=== PATIENT | male | born 1975 | race Caucasian/White ===

== ENCOUNTER 2019-11-07 17:56 | Emergency (ER) | payer SELFPAY ==
[2019-11-07 20:11] LABS: Urine Appearance CLEAR; Urine Bilirubin NEGATIVE (NEG); Urine Blood NEGATIVE (NEG); Urine Color YELLOW; Urine Glucose NEGATIVE (NEG); Urine Protein TRACE (NEG); Urine Specific Gravity >=1.030 (1.005-1.030); Urine Urobilinogen 0.2 mg/dL (0.2-1.0); Urine pH 5.5 (5.0-7.0)
[2019-11-07 20:25] LABS: Absolute Lymphocytes (CBC) 2.4 K/uL (0.7-4.9); Basophils % 1.1 % (0-1.3); Hematocrit 43.8 % (39.6-49.0); Lymphocytes % 19.9 % (15.3-44.8); MPV 9.5 fL (7.6-11.3); RBC Red Blood Cell Count 4.85 M/uL (4.33-5.43); Urine Bacteria <20 /HPF (NONE SEEN); Urine Culture Reflex Order NOT NEEDED; Urine Microscopic Reflex ORDER UMIC
[2019-11-07 20:26] LABS: Calcium Oxalate Crystals- Ur PRESENT (NONE SEEN)
[2019-11-07 20:28] LABS: ALT/SGPT 18 U/L (12-78); AST/SGOT 14 U/L (15-37); Albumin 3.3 g/dL (3.4-5.0); Alkaline Phosphatase 104 U/L (45-117); BUN Blood Urea Nitrogen 8 mg/dL (7-18); Bicarbonate 29 mmol/L (21-32); Bilirubin Direct < 0.1 mg/dL (0-0.2); Bilirubin Total 0.2 mg/dL (0.2-1.0); Glucose Level 104 mg/dL (74-106); Lipase 82 U/L (73-393); Potassium 3.5 mmol/L (3.5-5.1); Protein, Total 7.9 g/dL (6.4-8.2); Sodium Level 142 mmol/L (136-145)
[2019-11-07] MEDS ORDERED: KETOROLAC 30 MG/ML INJ ONE (20:37)
--- NOTE | 2019-11-07 20:42 | RAD REPORT ---
EXAM DESCRIPTION: CT - Stone Protocol - 11/07/2019 8:26 pm CLINICAL HISTORY: Abdominal pain. COMPARISON: None. TECHNIQUE: Computed axial tomography of the abdomen pelvis was obtained without oral or IV contrast. Lack of IV and oral contrast limits evaluation of solid organs, bowel, and vessels. Coronal reformat kalyn images were obtained and reviewed. All CT scans are performed using dose optimization technique as appropriate and may include automated exposure control or mA/KV adjustment according to patient size. FINDINGS: A renal calculus is not seen. An ureteral calculus is not noted. A bladder calculus is not present. A 21 millimeter low-density mass left kidney Cholelithiasis. Gallbladder wall does not appear thickened. The liver, spleen, pancreas and adrenals appear grossly normal There is no evidence of diverticulitis. The appendix appears normal Small inguinal hernias contain fat. Small umbilical hernia Subchondral sclerosis involves the sacroiliac joints with vacuum phenomena IMPRESSION: Negative for a genitourinary calculus 21 millimeter low-density mass left kidney is nonspecific without IV contrast. It probably represents a cyst. This could be confirmed with nonemergent renal ultrasound Cholelithiasis without evidence cholecystitis
--- NOTE | 2019-11-07 21:27 | EDPHYS ---
Physician Documentation [facility] Name: Robert Pablo Age: 44 yrs Sex: Male : 1975 Arrival Date: 11/07/2019 Time: 17:57 Bed 14 Private MD: ED Physician Saeid Turk HPI: 11/06 21:22 This 44 yrs old Male presents to ER via Ambulatory with complaints of Back tw4 Pain, Blood In Urine. 21:22 The patient presents with pain that is acute. The symptoms are located in the right mid tw4 back. Onset: The symptoms/episode began/occurred today. The pain does not radiate. Associated signs and symptoms: The patient has no apparent associated signs or symptoms. Severity of symptoms: At their worst the symptoms were moderate, in the emergency department the symptoms are unchanged. The patient has not experienced similar symptoms in the past. Historical: - Allergies: 18:20 PENICILLINS; aa5 - PMHx: 18:20 None; aa5 - PSHx: 18:20 None; aa5 - Immunization history:: Adult Immunizations unknown. - Social history:: Smoking status: Patient reports the use of cigarette tobacco products, smokes one pack cigarettes per day. ROS: 21:22 Constitutional: Negative for fever, chills, and weight loss, Eyes: Negative for injury, tw4 pain, redness, and discharge, Cardiovascular: Negative for chest pain, palpitations, and edema, Respiratory: Negative for shortness of breath, cough, wheezing, and pleuritic chest pain, Abdomen/GI: Negative for abdominal pain, nausea, vomiting, diarrhea, and constipation, MS/Extremity: Negative for injury and deformity, Skin: Negative for injury, rash, and discoloration, Neuro: Negative for headache, weakness, numbness, tingling, and seizure. 21:22 Back: Positive for flank pain. Exam: 21:22 Constitutional: This is a well developed, well nourished patient who is awake, alert, tw4 and in no acute distress. Head/Face: Normocephalic, atraumatic. Chest/axilla: Normal chest wall appearance and motion. Nontender with no deformity. No lesions are appreciated. Cardiovascular: Regular rate and rhythm with a normal S1 and S2. No gallops, murmurs, or rubs. Normal PMI, no JVD. No pulse deficits. Respiratory: Lungs have equal breath sounds bilaterally, clear to auscultation and percussion. No rales, rhonchi or wheezes noted. No increased work of breathing, no retractions or nasal flaring. Abdomen/GI: Soft, non-tender, with normal bowel sounds. No distension or tympany. No guarding or rebound. No evidence of tenderness throughout. MS/ Extremity: Pulses equal, no cyanosis. Neurovascular intact. Full, normal range of motion. Neuro: Awake and alert, GCS 15, oriented to person, place, time, and situation. Cranial nerves II-XII grossly intact. Motor strength 5/5 in all extremities. Sensory grossly intact. Cerebellar exam normal. Normal gait. 21:22 Back: pain, that is mild, ROM is normal, CVA tenderness, is noted on the right. Vital Signs: 18:19 BP 150 / 79; Pulse 88; Resp 18 S; Temp 98.4(O); Pulse Ox 97% on R/A; Weight 104.33 kg aa5 (R); Height 5 ft. 11 in. (180.34 cm) (R); Pain 9/10; 20:17 BP 138 / 85; Pulse 78; Resp 18; Pulse Ox 97% on R/A; dh4 18:19 Body Mass Index 32.08 (104.33 kg, 180.34 cm) aa5 MDM: 19:36 Patient medically screened. tw4 21:27 Differential diagnosis: Abdominal Aortic Aneurysm sprain, Ureterolithiasis vertebral tw4 fracture. Data reviewed: vital signs, nurses notes. Data interpreted: Pulse oximetry: Interpretation: normal. Counseling: I had a detailed discussion with the patient and/or guardian regarding: the historical points, exam findings, and any diagnostic results supporting the discharge/admit diagnosis. Special discussion: I discussed with the patient/guardian in detail that at this point there is no indication for admission to the hospital. It is understood, however, that if the symptoms persist or worsen the patient needs to return immediately for re-evaluation. 11/06 19:31 Order name: Basic Metabolic Panel; Complete Time: 21:03 tw4 11/06 21:03 Interpretation: Normal except: CL 109. tw4 11/06 19:31 Order name: CBC with Diff; Complete Time: 21:18 tw4 11/06 21:19 Interpretation: Normal except: WBC 12.1; EOSINOPHIL % 4.5; NEUT A 8.4. 11/06 19:31 Order name: Hepatic Function; Complete Time: 21:19 11/06 21:19 Interpretation: Normal except: AST 14; ALB 3.3; GLOB 4.6; A/G 0.7. 11/06 19:31 Order name: Lipase; Complete Time: 21:19 11/06 21:19 Interpretation: Within normal limits: LIP 82. 11/06 19:31 Order name: Urinalysis; Complete Time: 21:02 11/06 19:31 Order name: Urine Microscopic Only; Complete Time: 21:19 11/06 21:19 Interpretation: Normal except: URBC 5-10. 11/06 19:31 Order name: IV Saline Lock; Complete Time: 21:40 11/06 19:31 Order name: Labs collected and sent; Complete Time: 21:40 11/06 19:31 Order name: CT Stone Protocol; Complete Time: 21:02 11/06 20:27 Order name: Urine Microscopic Only EDMS Administered Medications: 20:15 Drug: TORadol 30 mg Route: IVP; Site: right antecubital; ls4 20:45 Follow up: Response: No adverse reaction; Marked relief of symptoms ls4 Disposition: 11/07/19 21:27 Discharged to Home. Impression: Calculus of ureter, Hematuria. - Condition is Stable. - Discharge Instructions: Kidney Stones, Renal Colic, Kidney Stones, [id number]. - Prescriptions for Ibuprofen 800 mg Oral Tablet - take 1 tablet by ORAL route every 8 hours As needed take with food; 30 tablet. Tylenol- Codeine #3 300-30 mg Oral Tablet - take 2 tablet by ORAL route every 6 hours As needed; 30 tablet. Zofran 4 mg Oral Tablet - take 1 tablet by ORAL route every 12 hours As needed; 6 tablet. Flomax 0.4 mg Oral Capsule, Sust. Release 24 hr - take 1 capsule by ORAL route once daily 1/2 hour following the same meal each day; 30 capsule. - Medication Reconciliation Form, Thank You Letter, Antibiotic Education, Prescription Opioid Use form. - Follow up: Private Physician; When: Upon discharge from the Emergency Department; Reason: Recheck today's complaints, Continuance of care, Re-evaluation by your physician. - Problem is new. - Symptoms have improved. Signatures: Dispatcher [employer] EDMS Verena Truong, RN RN aa5 Saeid Turk MD MD tw4 Fran Nava RN RN mg2 Emma Vidales RN RN ls4 Corrections: (The following items were deleted from the chart) : 21:27 11/07/2019 21:27 Discharged to Home. Impression: Calculus of ureter. Condition is tw4 Stable. Forms are Medication Reconciliation Form, Thank You Letter, Antibiotic Education, Prescription Opioid Use. Follow up: Private Physician; When: Upon discharge from the Emergency Department; Reason: Recheck today's complaints, Continuance of care, Re-evaluation by your physician. Problem is new. Symptoms have improved. tw4 21:41 21:27 11/07/2019 21:27 Discharged to Home. Impression: Calculus of ureter; Hematuria. mg2 Condition is Stable. Forms are Medication Reconciliation Form, Thank You Letter, Antibiotic Education, Prescription Opioid Use. Follow up: Private Physician; When: Upon discharge from the Emergency Department; Reason: Recheck today's complaints, Continuance of care, Re-evaluation by your physician. Problem is new. Symptoms have improved. tw4 11/07 00:06 11/06 21:41 11/07/2019 21:27 Discharged to Home. Impression: Calculus of ureter; ls4 Hematuria. Condition is Stable. Discharge Instructions: Kidney Stones, Renal Colic, Kidney Stones, [id number]. Prescriptions for Ibuprofen 800 mg Oral Tablet - take 1 tablet by ORAL route every 8 hours As needed take with food; 30 tablet, Tylenol-Codeine #3 300-30 mg Oral Tablet - take 2 tablet by ORAL route every 6 hours As needed; 30 tablet, Zofran 4 mg Oral Tablet - take 1 tablet by ORAL route every 12 hours As needed; 6 tablet, Flomax 0.4 mg Oral Capsule, Sust. Release 24 hr - take 1 capsule by ORAL route once daily 1/2 hour following the same meal each day; 30 capsule. and Forms are Medication Reconciliation Form, Thank You Letter, Antibiotic Education, Prescription Opioid Use. Follow up: Private Physician; When: Upon discharge from the Emergency Department; Reason: Recheck today's complaints, Continuance of care, Re-evaluation by your physician. Problem is new. Symptoms have improved. mg2
--- NOTE | 2019-11-07 21:27 | ER ---
Nurse's Notes [facility] Name: Robert Pablo Age: 44 yrs Sex: Male : 1975 Arrival Date: 11/07/2019 Time: 17:57 Bed 14 Private MD: Diagnosis: Calculus of ureter;Hematuria Presentation: 11/06 18:18 Chief complaint: Patient states: low back pain that began this morning, pt also reports aa5 hematuria today. Pt denies nausea/vomiting. Coronavirus screen: Proceed with normal triage. Patient denies a cough. Patient denies shortness of breath or difficulty breathing. Patient denies measured and/or subjective temperature greater than 100.4F prior to today's visit. Patient denies travel on a cruise ship or to a country the [facility] currently lists as an affected area. Patient denies contact with known and/or suspected case of COVID-19. Ebola Screen: Patient negative for fever greater than or equal to 101.5 degrees Fahrenheit, and additional compatible Ebola Virus Disease symptoms. Initial Sepsis Screen: Does the patient meet any 2 criteria? No. Patient's initial sepsis screen is negative. Does the patient have a suspected source of infection? No. Patient's initial sepsis screen is negative. Risk Assessment: Do you want to hurt yourself or someone else? Patient reports no desire to harm self or others. Onset of symptoms was November 07, 2019. 18:18 Method Of Arrival: Ambulatory aa5 18:18 Acuity: MILLA 3 aa5 Triage Assessment: 19:34 General: Appears uncomfortable, obese, unkempt, Behavior is calm, cooperative. ls4 19:34 Pain: Complains of pain in left low back, right low back and abdomen Pain currently is ls4 8 out of 10 on a pain scale. Quality of pain is described as aching, crampy, sharp, Pain began 2-3 days ago. Is continuous. EENT: No deficits noted. No signs and/or symptoms were reported regarding the EENT system. Neuro: Level of Consciousness is awake, alert, obeys commands, Oriented to person, place, time, situation. Cardiovascular: Denies chest pain. Respiratory: Airway is patent Respiratory effort is even, unlabored, Respiratory pattern is regular, Denies cough, shortness of breath labored breathing. : Urine is clear. Derm: No deficits noted. No signs and/or symptoms reported regarding the dermatologic system. Musculoskeletal: Circulation, motion, and sensation intact. Capillary refill < 3 seconds, Range of motion: intact in all extremities. Historical: - Allergies: 18:20 PENICILLINS; aa5 - PMHx: 18:20 None; aa5 - PSHx: 18:20 None; aa5 - Immunization history:: Adult Immunizations unknown. - Social history:: Smoking status: Patient reports the use of cigarette tobacco products, smokes one pack cigarettes per day. Screenin:06 Abuse screen: Denies threats or abuse. Denies injuries from another. Nutritional ls4 screening: No deficits noted. Tuberculosis screening: No symptoms or risk factors identified. Fall Risk None identified. Assessment: 20:06 Neuro: No deficits noted. GI: Abdomen is non-distended, obese, Bowel sounds present X 4 ls4 quads. Abd is soft and non tender X 4 quads. Vital Signs: 18:19 BP 150 / 79; Pulse 88; Resp 18 S; Temp 98.4(O); Pulse Ox 97% on R/A; Weight 104.33 kg aa5 (R); Height 5 ft. 11 in. (180.34 cm) (R); Pain 9/10; 20:17 BP 138 / 85; Pulse 78; Resp 18; Pulse Ox 97% on R/A; dh4 18:19 Body Mass Index 32.08 (104.33 kg, 180.34 cm) aa5 ED Course: 17:57 Patient arrived in ED. ag5 18:18 Arm band placed on. aa5 18:19 Triage completed. aa5 19:30 Saeid Turk MD is Attending Physician. tw4 19:46 Emma Vidales, DANIAL is Primary Nurse. ls4 20:06 Patient has correct armband on for positive identification. Bed in low position. Call ls4 light in reach. Side rails up X 1. Pulse ox on. NIBP on. Verbal reassurance given. Diet: Patient is NPO. 20:15 No provider procedures requiring assistance completed. Initial lab(s) drawn, by nj, 4 sent to lab. Urine collected: clean catch specimen. Inserted saline lock: 20 gauge in right antecubital area, using aseptic technique. Blood collected. Patient maintains SpO2 saturation greater than 95% on room air. 20:26 CT Stone Protocol In Process Unspecified. EDMS 20:32 Urine Microscopic Only Sent. ls4 21:40 IV discontinued, intact, bleeding controlled, No redness/swelling at site. Pressure mg2 dressing applied. 11/07 00:04 Primary Nurse role handed off by Emma Vidales, RN ls4 Administered Medications: 11/06 20:15 Drug: TORadol 30 mg Route: IVP; Site: right antecubital; ls4 20:45 Follow up: Response: No adverse reaction; Marked relief of symptoms ls4 Outcome: 21:27 Discharge ordered by . tw4 21:40 Discharged to home ambulatory. mg2 21:40 Condition: stable 21:40 Discharge instructions given to patient, Instructed on discharge instructions, follow up and referral plans. medication usage, Demonstrated understanding of instructions, follow-up care, medications, Prescriptions given X 4. 21:41 Patient left the ED. mg2 11/07 00:06 Patient left the ED. ls4 Signatures: Dispatcher [employer] EDDC Verena Truong RN RN aa5 Saeid Turk MD MD tw4 Fran Nava RN RN mg2 Emma Vidales RN RN ls4 [facility]
[2019-11-07 22:07] VITALS: TEMP 98.4; O2SAT 97
[2019-11-07 22:08] VITALS: BP 138/85
== END 2019-11-08 00:06 | disposition home or self-care (01) ==
LOC: ER 17:56
DX: N20.1 Calculus of ureter (principal); F17.210 Nicotine dependence, cigarettes, uncomplicated; Z88.0 Allergy status to penicillin
CPT/HCPCS: 36415; 74176; 76377; 80048; 80076; 81003; 81015; 83690; 85025; 96374; 99284